=== PATIENT | female | born 2000 | race Hispanic/Latino ===

== ENCOUNTER 2022-04-09 08:12 | Outpatient (AMB) | payer MEDICAID, SELFPAY ==
--- NOTE | 2022-04-09 09:40 | RT.TREATMENT ---
Office Procedures RT Procedures Procedures EEG Extended Monitoring Awake/Drowsy: Yes
== END 2022-04-09 09:39 | disposition home or self-care (01) ==
LOC: HODRTX 08:12
PROVIDERS: PCP Family Medicine; Referring Provider Psychiatry & Neurology Neurology; Visit Provider Psychiatry & Neurology Neurology
DX: R55 Syncope and collapse (principal)